=== PATIENT | male | born 1980 | race Caucasian/White ===

== ENCOUNTER 2022-04-29 08:08 | Emergency (ER) | payer OTHER ==
[2022-04-29 08:15] VITALS: BP 123/80; PULSE 58; RESP 18; TEMP 98.4
[2022-04-29] MEDS ORDERED: KETOROLAC 15 MG/ML 1 ML VIAL IM STA (09:27)
[2022-04-29] MEDS ORDERED: HYDROmorphone 1 MG/ML 1 ML SYRINGE IM STA (09:27)
[2022-04-29] MEDS ORDERED: predniSONE 50 MG TAB PO STA (09:27)
--- NOTE | 2022-04-29 09:32 | ED ---
General Adult HPI - General Chief complaint: Back Pain/Injury Stated complaint: Back Pain Time Seen by Provider: 04/29/22 09:00 Source: patient, RN notes reviewed, old records reviewed Mode of arrival: ambulatory Limitations: no limitations - History of Present Illness Initial comments: This is a 41-year-old male who presents emergency Department complaining of pain from his right buttocks down into the lower leg. Patient states started yesterday after he felt some soreness in his back and then the pain got worse per patient states he can bend and flex at the waist without problem however when he uses his leg gets the pain shooting down his leg. Patient states she's had some issues in the past with bulging disc. Patient denies any numbness or weakness distally. Patient denies any urinary retention or tenderness. Patient denies any perineum numbness. Patient denies any recent injury or trauma. Patient denies any rashes or redness. Patient denies any swelling to the legs or calf tenderness. - Related Data Previous Rx's Medication Instructions Recorded predniSONE [Deltasone] 40 mg PO DAILY #10 tab 04/29/22 Allergies Allergy/AdvReac Type Severity Reaction Status Date / Time No Known Allergies Allergy Verified 04/29/22 08:14 Review of Systems ROS Statement: Those systems with pertinent positive or pertinent negative responses have been documented in the HPI. ROS Other: All systems not noted in ROS Statement are negative. Past Medical History Additional Past Medical History / Comment(s): herniated disc Past Surgical History: Hernia Repair, Tonsillectomy Past Psychological History: No Psychological Hx Reported Smoking Status: Never smoker Past Alcohol Use History: Occasional Past Drug Use History: None Reported General Exam - General Exam Comments Initial Comments: GENERAL: Patient is well-developed and well-nourished. Patient is nontoxic and well- hydrated and is in mild distress. ENT: Neck is soft and supple. Neck has full range of motion without eliciting any pain. EYES: The sclera were anicteric and conjunctiva were pink and moist. Extraocular movements were intact and pupils were equal round and reactive to light. Eyel ids were unremarkable. SKIN: Skin is clear with no lesions or rashes and otherwise unremarkable. NEUROLOGIC: Patient is alert and oriented x3. Cranial nerves II through XII are grossly intact. Motor and sensory are also intact. Normal speech, volume and content. Symmetrical smile. Patient has positive straight leg raise with the right leg at about 20 MUSCULOSKELETAL: Normal extremities with adequate strength and full range of motion. No lower extremity swelling or edema. No calf tenderness. PSYCHIATRIC: Normal psychiatric evaluation. Limitations: no limitations Course Vital Signs 04/29/22 08:09 Temperature 98.4 F Pulse Rate 58 L Respiratory 18 Rate Blood Pressure 123/80 O2 Sat by Pulse 100 Oximetry Medical Decision Making - Medical Decision Making Patient received Dilaudid Toradol and prednisone. Disposition Clinical Impression: Sciatica Disposition: HOME SELF-CARE Condition: Good Instructions (If sedation given, give patient instructions): Sciatica (ED) Prescriptions: predniSONE [Deltasone] 40 mg PO DAILY #10 tab Is patient prescribed a controlled substance at d/c from ED?: No Referrals: None,Stated [Primary Care Provider] - 1-2 days Time of Disposition: 09:30
== END 2022-04-29 09:56 | disposition home or self-care (01) ==
LOC: EC 08:08
DX: M54.31 Sciatica, right side (principal)
CPT/HCPCS: 99283; 96372 ×3; J1170; J1885; J7512